=== PATIENT | male | born 1980 | race Caucasian/White ===

== ENCOUNTER 2016-12-28 23:58 | Emergency (ER) | payer SELFPAY ==
[2016-12-29 00:04] VITALS: BP 145/100; PULSE 107; RESP 14; TEMP 97.9; O2SAT 96
--- NOTE | 2016-12-29 00:44 | EDPHY ---
H & P Stated Complaint: R inguinal hernia since February, worsening pain this week Time Seen by Provider: 12/29/16 00:37 HPI/ROS: CHIEF COMPLAINT: Hernia HISTORY OF PRESENT ILLNESS: Patient is a 36-year-old man who comes to the emergency department complaining of a right inguinal hernia. He is asking to have it repaired. He states that was diagnosed about 8 months ago. 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 He states that it is somewhat painful when it needs however. No change in his bowel habits. No difficulty urinating. REVIEW OF SYSTEMS: Constitutional: denies: chills, fever, recent illness, recent injury EENTM: denies: blurred vision, double vision, nose congestion Respiratory: denies: cough, shortness of breath Cardiac: denies: chest pain, irregular heart rate, lightheadedness, palpitations Gastrointestinal/Abdominal: See HPI Genitourinary: denies: dysuria, frequency, hematuria, pain Musculoskeletal: denies: joint pain, muscle pain Skin: denies: lesions, rash, jaundice, bruising Neurological: denies: headache, numbness, paresthesia, tingling, dizziness, weakness Hematologic/Lymphatic: denies: blood clots, easy bleeding, easy bruising Immunologic/allergic: denies: HIV/AIDS, transplant EXAM: GENERAL: Well-appearing, well-nourished and in no acute distress. HEAD: Atraumatic, normocephalic. EYES: Pupils equal round and reactive to light, extraocular movements intact, sclera anicteric, conjunctiva are normal. ENT: TMs normal, nares patent, oropharynx clear without exudates. Moist mucous membranes. NECK: Normal range of motion, supple without lymphadenopathy or JVD. LUNGS: Breath sounds clear to auscultation bilaterally and equal. No wheezes rales or rhonchi. HEART: Regular rate and rhythm without murmurs, rubs or gallops. ABDOMEN: Soft, nontender, normoactive bowel sounds. No guarding, no rebound. No masses appreciated. : Patient has an obvious large right inguinal hernia. It is easily reducible. Nontender. BACK: No CVA tenderness, no spinal tenderness, step-offs or deformities EXTREMITIES: Normal range of motion, no pitting or edema. No clubbing or cyanosis. NEUROLOGICAL: Cranial nerves II through XII grossly intact. Normal speech, normal gait. 5/5 strength, normal movement in all extremities, normal sensation PSYCH: Normal mood, normal affect. SKIN: Warm, dry, normal turgor, no visible rashes or lesions. Source: Patient Exam Limitations: No limitations - Personal History Current Tetanus/Diphtheria Vaccine: No Current Tetanus Diphtheria and Acellular Pertussis (TDAP): No Tetanus Vaccine Date: >10 years - Medical/Surgical History Hx Asthma: No Hx Chronic Respiratory Disease: No Hx Diabetes: No Hx Cardiac Disease: No Hx Renal Disease: No Hx Cirrhosis: No Hx Alcoholism: No Hx HIV/AIDS: No Hx Splenectomy or Spleen Trauma: No Other PMH: GERD. wisdom teeth extraction - Family History Significant Family History: Hypertension - Social History Smoking Status: Heavy smoker Alcohol Use: Sober Drug Use: None Constitutional: Initial Vital Signs Temperature (C) 36.6 C 12/29/16 00:01 Heart Rate 107 H 12/29/16 00:01 Respiratory Rate 14 12/29/16 00:01 Blood Pressure 145/100 H 12/29/16 00:01 O2 Sat (%) 96 12/29/16 00:01 O2 Delivery Mode Room Air Allergies/Adverse Reactions: No Known Allergies Allergy (Unverified 12/29/16 00:00) Home Medications: Medication Instructions Recorded Zantac 12/29/16 Medical Decision Making ED Course/Re-evaluation: The patient has an easily reducible right inguinal hernia. He came to the emergency department tonight at midnight expecting to have surgery done. He did not understand the medical process. I will refer him to a surgeon. we spent some time discussing the fact that this is an elective surgery and that he needs to see a specialist. He understands and agrees with this plan. We will attempt to find a hernia belt that may help him with his symptoms. Differential Diagnosis: Partial list of the Differential diagnosis considered include but were not limited to; inguinal hernia, incarcerated hernia and although unlikely based on the history and physical exam, I also considered testicular torsion, urinary tract infection, kidney stone, appendicitis. I discussed these differential diagnoses and the plan with the patient as well as the usual and expected course. The patient understands that the diagnosis is provisional and that in medicine we are not always correct and that further workup is often warranted. Usual and customary warnings were given. All of the patient's questions were answered. The patient was instructed to return to the emergency department should the symptoms at all worsen or return, otherwise to followup with the physician as we discussed. Departure - Departure Disposition: Home, Routine, Self-Care Clinical Impression: Right inguinal hernia Condition: Good Instructions: Inguinal Hernia (ED) Referrals: Brian Khan MD [Primary Care Provider] - As per Instructions Ted Trujillo MD [Medical Doctor] - As per Instructions
== END 2016-12-29 00:51 | disposition home or self-care (01) ==
DX: K40.90 Unilateral inguinal hernia, without obstruction or gangrene, not specified as recurrent (principal); F17.200 Nicotine dependence, unspecified, uncomplicated

== ENCOUNTER 2017-01-17 06:50 | Day surgery (SDC) | payer MEDICAID ==
[~2017-01-17 06:50] MED LIST: ceFAZolin 2 GM/DEXTROSE 100 ML IV ONE
[2017-01-17] MEDS ORDERED: BUPIVACAINE/EPI 0.25% 30 ML SDV ONE (07:58)
[2017-01-17] MEDS ORDERED: LIDOCAINE 1% 5 ML SDV ONE (07:59)
[2017-01-17] MEDS ORDERED: fentaNYL 100 MCG/2 ML INJ ONE ×4 (08:34→11:21)
[2017-01-17] MEDS ORDERED: PROPOFOL 200 MG/20 ML VIAL ONE ×3 (08:34→10:44)
[2017-01-17] MEDS ORDERED: ROCURONIUM 50 MG/5 ML VIAL ONE (08:35)
[2017-01-17] MEDS ORDERED: LIDOCAINE 2% 100 MG/5 ML SYR ONE (08:36)
[2017-01-17] MEDS ORDERED: MIDAZOLAM 2 MG/2 ML VIAL ONE (08:38)
[2017-01-17] MEDS ORDERED: ONDANSETRON 4 MG/2 ML VIAL ONE (08:59)
[2017-01-17] MEDS ORDERED: DEXAMETHASONE 4 MG/ML VIAL ONE (08:59)
[2017-01-17] MEDS ORDERED: HYDROmorphONE/DILAUDID 2 MG/ML INJ ONE (11:22)
[2017-01-17] MEDS ORDERED: OXYCODONE/APAP 5/325 TAB ONE ×2 (12:16→13:03)
--- NOTE | 2017-01-17 14:59 | GOP ---
[f rep st] OPERATIVE REPORT DATE OF OPERATION: 01/17/2017 SURGEON: Ted Trujillo MD HOMICIDE DETECTIVE: Jesse Thompson MD. ANESTHESIA: General endotracheal per Dr. García. PREOPERATIVE DIAGNOSIS: Symptomatic right inguinal hernia. POSTOPERATIVE DIAGNOSIS: Large, indirect right inguinal hernia. PROCEDURE PERFORMED: Laparoscopic right inguinal hernia repair with mesh. FINDINGS: Large indirect hernia sac densely adherent to cord structures subsequently reduced. Defect repaired with Parietex site specific laparoscopic mesh. SPECIMENS: None. ESTIMATED BLOOD LOSS: 5 cc. DESCRIPTION OF PROCEDURE: The patient was greeted in the preoperative suite. Once again, risks, benefits, and alternatives were discussed. Consent was signed. He was then brought back to the operative suite and placed on the OR table in a supine position. After all anesthesia machines, including SCDs, were on and functioning, a [employer] time-out was performed ending with all in agreement. General endotracheal anesthesia was then induced without incident. The patient's abdomen was widely prepped and draped with typical sterile fashion. I entered the abdomen in an infraumbilical horizontal incision and carried it down through the subcutaneous tissues. I encountered the anterior sheath of the rectus fascia and incised it. I bluntly dissected to the posterior sheath, through which I placed my dissecting balloon. I then dissected out the preperitoneal space. Once successfully done, I placed in the laparoscopic hernia-specific trocar and insufflated with 15 mmHg CO2, which was well tolerated by the patient. I then placed 2 additional 5 mm trocars: 1 suprapubic and 1 midway between the other 2 port sites, both under direct visualization. Using these port sites. I successfully dissected out the lateral edge for the specific mesh placement. I identified the pubic tubercle and Alberto ligament medially, worked my way laterally (protecting the femoral vein), and identified the cord structures. Lateral to the cord structures, I identified a densely adherent hernia sac, which I subsequently reduced. I did end up having to amputate the sac as it was densely adherent to the vas deferens and the underlying testicle. It was encircled after ligation with an 0 PDS Endoloop and allowed to return back mostly into the abdominal cavity. I then protected all the cord structures, identified no other femoral and/or direct hernia defects, and then placed my site specific mesh within the preperitoneal cavity. I placed it around the cord structures in appropriate fashion. I tacked it to Alberto ligament and the pubic tubercle medially with sufficient overlap superiorly, with 1 tack holding it adjacent to the inferior epigastric vessels. After this was done, and I ensured that the mesh was lying properly, I turned my attention toward the left side where no indirect and/or direct or femoral defects were identified. I then desufflated, watching the mesh throughout to ensure proper placement. After this, I turned my attention toward closing. I closed my infraumbilical site with a [id number] 0 Vicryl stitch, noting excellent fascial reapproximation. I closed my skin sites with running 4-0 Monocryl, over which Dermabond was placed. The patient was then extubated in the operative suite and taken to the PACU in satisfactory condition. DRAINS: None. COUNTS: All counts were reported as correct x2. /[id number]/MODL MTDD
== END 2017-01-17 13:15 | disposition home or self-care (01) ==
LOC: FSGY 06:50
PROVIDERS: ATTEND Surgery
PROC: 0YU54JZ Supplement Right Inguinal Region with Synthetic Substitute, Percutaneous Endoscopic Approach (ICD-10-PCS; principal; 2017-01-17 08:30)
DX: K40.90 Unilateral inguinal hernia, without obstruction or gangrene, not specified as recurrent (principal)
CPT/HCPCS: 49650; C1727; C1781; J0690; J1100; J1170; J2001; J2250; J2405; J2704; J3010